=== PATIENT | male | born 1980 | race Caucasian/White ===

== ENCOUNTER 2019-11-05 16:02 | Emergency (ER) | payer OTHER ==
[~2019-11-05] VITALS: Ht 177.8 cm; Wt 75.0 kg
[2019-11-05 16:18] VITALS: BP 119/82
[2019-11-05] MEDS ORDERED: bacitracin 15gm ointment TP ONE (18:00)
[2019-11-05] MEDS ORDERED: CEPH250T PO (18:00)
[2019-11-05] MEDS ORDERED: TETanus/Pertussis (Acell)/Diphther VAC/PF (Tdap-Adult) 0.5ml syringe IMVAC ONE (18:00)
== END 2019-11-05 18:40 | disposition home or self-care (01) ==
LOC: MERGE 16:02 → ER 16:02
DX: S41.011A Laceration without foreign body of right shoulder, initial encounter (principal); M79.621 Pain in right upper arm; Z79.2 Long term (current) use of antibiotics; X58.XXXA Exposure to other specified factors, initial encounter; Y93.89 Activity, other specified; Y92.89 Other specified places as the place of occurrence of the external cause; Y99.8 Other external cause status
CPT/HCPCS: 73060; 90471; 90715; 99284

== ENCOUNTER 2024-05-11 13:01 | Emergency (ER) | payer OTHER ==
[~2024-05-11] VITALS: Ht 177.8 cm; Wt 70.3 kg
[2024-05-11 13:07] VITALS: BP 131/78; PULSE 95; RESP 16; O2SAT 99
[2024-05-11 16:12] VITALS: TEMP 98.1
== END 2024-05-11 15:34 | disposition home or self-care (01) ==
LOC: ER 13:01
DX: S92.902A Unspecified fracture of left foot, initial encounter for closed fracture (principal); F12.90 Cannabis use, unspecified, uncomplicated; F10.90 Alcohol use, unspecified, uncomplicated; W18.40XA Slipping, tripping and stumbling without falling, unspecified, initial encounter; Y93.89 Activity, other specified; Y92.89 Other specified places as the place of occurrence of the external cause; Y99.8 Other external cause status; Y90.9 Presence of alcohol in blood, level not specified
CPT/HCPCS: 73630; 99283; L4360